=== PATIENT | male | born 1980 | race Two or more races ===

== ENCOUNTER → 2020-03-01 | Emergency (ER) | payer SELFPAY ==
[~2020-03-01] VITALS: Ht 15.2 cm; Wt 99.8 kg
[~2020-03-01] MED LIST: METF-370 PO; MORPHINE SULFATE 4 MG/ML SYR/VIAL IV ONE; ONDANSETRON HCL 4 MG/2 ML VIAL IV ONE; SODIUM CHLORIDE 0.9% 1,000 ML IV ONE
[2020-03-01 01:42] LABS: Basophils # (auto) 0.1 10 ^3/uL (0-0.2); Eosinophils # (auto) 0.2 10 ^3/uL (0-0.8); Eosinophils % (auto) 1.6 % (0.0-7.0); Hematocrit 50.2 % (41.0-53.0); Hemoglobin 16.6 g/dL (13.5-17.5); Lymphocytes # (auto) 1.9 10 ^3/uL (0.4-5.4); Lymphocytes % (auto) 13.6 % (10.0-50.0); Mean Corpuscular Hemoglobin 29.2 pg (28.0-32.0); Mean Corpuscular Volume 88.4 fL (80.0-100.0); Monocytes # (auto) 1.1 10 ^3/uL (0-1.3); Monocytes % (auto) 7.8 % (0.0-12.0); Neutrophils # (auto) 10.5 10 ^3/uL (1.6-8.6); Nucleated Red Blood Cells % 0.1 %; Platelet Count (auto) 406 10^3/uL (140-450); Red Blood Cells 5.68 10^6/uL (4.5-5.90); White Blood Cell 13.9 10^3/uL (4.4-10.8)
[2020-03-01 01:57] LABS: INR 1.02 (0.9-1.15); Partial Thromboplastin Time 28.3 sec (23.64-32.05)
[2020-03-01 02:01] LABS: Albumin 3.4 g/dL (3.4-5.0); Amylase 37 U/L (25-115); Anion Gap 7 (5-15); Blood Urea Nitrogen 12 mg/dL (7-18); Calcium 8.7 mg/dL (8.5-10.1); Carbon Dioxide 26 mmol/L (21-32); Chloride 104 mmol/L (98-107); Glucose 116 mg/dL (74-106); Lipase 106 U/L (73-393); Magnesium 2.3 mg/dL (1.6-2.6); Potassium 4.1 mmol/L (3.5-5.1); Sodium 137 mmol/L (136-145)
[2020-03-01 02:03] LABS: Alanine Aminotransferase 514 U/L (16-61); Aspartate Aminotransferase 318 U/L (15-37); BUN/Creatinine Ratio 12.2; GFR African American 110 mL/min; GFR Non-African American 91 mL/min
[2020-03-01 02:11] LABS: Alkaline Phosphatase 229 U/L (45-117); Bilirubin, Total 0.9 mg/dL (0.2-1.0)
[2020-03-01 04:58] VITALS: BP 146/92
== END | disposition home or self-care (01) ==
LOC: EDBD 00:45 → ER 00:50
DX: K80.20 Calculus of gallbladder without cholecystitis without obstruction (principal); R11.2 Nausea with vomiting, unspecified
CPT/HCPCS: 36415; 71045; 74176; 76705; 80053; 82150; 83605; 83690; 83735; 84484; 85025; 85610; 85730; 93005; 96361; 96374; 96375; 99285; J2270; J2405

== ENCOUNTER 2020-03-07 12:51 | Inpatient (IN) | payer SELFPAY ==
[~2020-03-07] VITALS: Ht 182.9 cm; Wt 87.7 kg
[2020-03-07] MEDS ORDERED: SODIUM CHLORIDE 0.9% 1,000 ML IVB ONE (12:57)
[2020-03-07] MEDS ORDERED: PANTOPRAZOLE 40 MG/10 ML VIAL INJ IV STA (12:57)
[2020-03-07] MEDS ORDERED: HYDROmorphone HCL 2 MG/ML VL IV ONE (13:00)
[2020-03-07] MEDS ORDERED: ONDANSETRON HCL 4 MG/2 ML VIAL IV ONE (13:00)
[2020-03-07 13:27] LABS: Basophils # (auto) 0 10 ^3/uL (0-0.2); Basophils % (auto) 0.3 % (0.0-2.0); Eosinophils # (auto) 0.2 10 ^3/uL (0-0.8); Eosinophils % (auto) 2.1 % (0.0-7.0); Hematocrit 47.3 % (41.0-53.0); Hemoglobin 15.2 g/dL (13.5-17.5); Lymphocytes # (auto) 1.1 10 ^3/uL (0.4-5.4); Mean Corpuscular Hemoglobin 28.7 pg (28.0-32.0); Mean Corpuscular Hgb Conc. 32.2 g/dL (32.0-36.0); Mean Corpuscular Volume 89.2 fL (80.0-100.0); Monocytes # (auto) 1.1 10 ^3/uL (0-1.3); Monocytes % (auto) 9.4 % (0.0-12.0); Neutrophils # (auto) 8.9 10 ^3/uL (1.6-8.6); Neutrophils % (auto) 78.2 % (37.0-80.0); Nucleated Red Blood Cells % 0.1 %; Platelet Count (auto) 338 10^3/uL (140-450); Red Cell Distribution Width 14.2 % (11.8-14.3); White Blood Cell 11.3 10^3/uL (4.4-10.8)
[2020-03-07 13:56] LABS: Albumin 3.3 g/dL (3.4-5.0); Calcium 8.6 mg/dL (8.5-10.1); Potassium 4.1 mmol/L (3.5-5.1)
[2020-03-07 14:00] LABS: BUN/Creatinine Ratio 14.9; Bilirubin, Total 0.9 mg/dL (0.2-1.0); Total Protein 7.3 g/dL (6.4-8.2)
[2020-03-07] MEDS ORDERED: cefTRIAXone 1GM/50ML D5W 50 ML IV ONE (14:15)
[2020-03-07] MEDS ORDERED: ONDANSETRON HCL 4 MG/2 ML VIAL IV PRN (16:00)
[2020-03-07] MEDS ORDERED: NITROGLYCERIN 0.4 MG SL TAB SL PRN (16:00)
[2020-03-07] MEDS ORDERED: ACETAMINOPHEN 500 MG TAB PO PRN (16:00)
[2020-03-07] MEDS ORDERED: MORPHINE SULF INJ 2 MG/ML SYRINGE 1ML IV PRN ×2 (16:00)
[2020-03-07] MEDS ORDERED: DEXTROSE (50%) 50ML SYRG IV PRN (16:15)
[2020-03-07] MEDS: SOD CHL 0.9%/ KCL 20MEQ 1,000 ML IV SCH (16:22)
[2020-03-07] MEDS: InsuLIN REG 1unit/0.01ml Soln (100units/ml) SC SCH ×2 (17:00→21:28)
[2020-03-07] MEDS: ACCU-CHEK COMFORT CURVE STRIP VI SCH ×2 (17:03→21:28)
--- NOTE | 2020-03-07 17:55 | NUR ---
[facility] admit from ER JEAN BRANDT admitted to [facility] after SBAR received. Patient oriented to Audra lind RN, unit, room, bed, and unit policies regarding patient care and visiting hours. Patient weighed by bed scale and encouraged to call if they need something. All questions and concerns addressed, patient verbalized understanding. Instructed patient on POC, fall precautions and to call for assistance as needed. Patient verbalized understanding. Fall precautions in place with call light within reach.
[2020-03-07 18:17] VITALS: BP 140/93
[2020-03-07] MEDS ORDERED: METF-370 PO (18:36)
--- NOTE | 2020-03-07 18:42 | NUR ---
RE: Diet Spoke with Maria Fernanda Shipley, RE: diet order. Quinten to review test results and place orders.
--- NOTE | 2020-03-07 18:43 | NUR ---
Closing note Patient resting in bed with even and unlabored respirations, no distress noted. Fall precautions in place with call light within reach.
--- NOTE | 2020-03-07 19:03 | NUR ---
Care endorsed to CEDRIC Brownlee.
--- NOTE | 2020-03-07 21:00 | NUR ---
Opening Shift Note Assumed care of patient, awake and alert. No S/S of distress/SOB or pain. Instructed on POC, patient medications, accu checks pending surgical consult with Dr Landeros and to call for assist PRN, will continue to monitor for changes Q1hr and PRN. patient verbalizes understanding no questions asked.
[2020-03-07] MEDS: metroNIDAZOLE 500MG/100ML 100 ML IV SCH (21:34)
[2020-03-07 22:00] VITALS: BP 155/96
[2020-03-08] MEDS: SOD CHL 0.9%/ KCL 20MEQ 1,000 ML IV SCH ×3 (02:59→18:45)
[2020-03-08 05:42] VITALS: BP 134/77
[2020-03-08] MEDS: metroNIDAZOLE 500MG/100ML 100 ML IV SCH ×3 (06:20→23:47)
[2020-03-08] MEDS: InsuLIN REG 1unit/0.01ml Soln (100units/ml) SC SCH ×4 (06:20→22:00)
[2020-03-08] MEDS: ACCU-CHEK COMFORT CURVE STRIP VI SCH ×4 (06:20→23:48)
[2020-03-08 06:38] LABS: Basophils # (auto) 0 10 ^3/uL (0-0.2); Basophils % (auto) 0.3 % (0.0-2.0); Eosinophils # (auto) 0.2 10 ^3/uL (0-0.8); Eosinophils % (auto) 2.3 % (0.0-7.0); Hematocrit 45.3 % (41.0-53.0); Hemoglobin 15.1 g/dL (13.5-17.5); Lymphocytes # (auto) 0.9 10 ^3/uL (0.4-5.4); Lymphocytes % (auto) 8.3 % (10.0-50.0); Mean Corpuscular Hemoglobin 29.5 pg (28.0-32.0); Mean Corpuscular Hgb Conc. 33.4 g/dL (32.0-36.0); Mean Corpuscular Volume 88.5 fL (80.0-100.0); Monocytes # (auto) 0.8 10 ^3/uL (0-1.3); Monocytes % (auto) 7.7 % (0.0-12.0); Neutrophils # (auto) 8.5 10 ^3/uL (1.6-8.6); Neutrophils % (auto) 81.4 % (37.0-80.0); Platelet Count (auto) 314 10^3/uL (140-450); Red Blood Cells 5.12 10^6/uL (4.5-5.90); Red Cell Distribution Width 13.7 % (11.8-14.3); White Blood Cell 10.5 10^3/uL (4.4-10.8)
[2020-03-08 06:46] LABS: Albumin 2.9 g/dL (3.4-5.0); Calcium 8.2 mg/dL (8.5-10.1); Potassium 4.1 mmol/L (3.5-5.1)
[2020-03-08 06:48] LABS: BUN/Creatinine Ratio 10.4
--- NOTE | 2020-03-08 06:54 | NUR ---
HEADACHE PATIENT C/O 10 HEADACHE REQUESTING PAIN MEDICAITON. ADMINISTERED TYLENOL 500MG PO PRESCRIBED PATIENT TOLERATED WELL WILL CONTINUE TO MONITOR PATIENT.
[2020-03-08 06:57] LABS: Bilirubin, Total 0.8 mg/dL (0.2-1.0); Total Protein 6.6 g/dL (6.4-8.2)
[2020-03-08 07:01] LABS: INR 1.18 (0.9-1.15); Partial Thromboplastin Time 28.5 sec (23.64-32.05)
--- NOTE | 2020-03-08 08:00 | NUR ---
MORNING NOTE ASSUMED CARE OF PATIENT. PT IS RESTING WITH EYES CLOSED. NO S/S OF DISTRESS. RESPIRATIONS ARE EQUAL AND NON LABORED. BED IN LOWEST POSITION WITH CALL LIGHT IN PLACE. Signed: 03/08/20 at 1250 by Pippa GAVIN <Co-Signature Required> Co-Signed: 03/08/20 at 1250 by Audra Tan RN
[2020-03-08 09:07] VITALS: BP 129/69
[2020-03-08] MEDS: cefTRIAXone 1GM/50ML D5W 50 ML IV SCH (10:35)
--- NOTE | 2020-03-08 10:40 | NUR ---
URINE SAMPLE URINE SAMPLE COLLECTED AND SENT TO LAB PER MD HI
[2020-03-08 11:01] LABS: Urine Bacteria NONE SEEN /hpf (None Seen); Urine Blood Negative /uL (Negative); Urine Specific Gravity 1.013 (1.001-1.035); Urine WBC 3 /hpf (0 - 3)
--- NOTE | 2020-03-08 11:35 | NUR ---
MD was at bedside - Dr. Rickie Youssef Order received and read back to verify.
[2020-03-08 14:32] VITALS: BP 111/71
[2020-03-08 16:53] VITALS: BP 128/79
--- NOTE | 2020-03-08 18:20 | NUR ---
RE: Consents Attempted to obtain consents per MD order. Dr. Landeros has not discussed the procedure per the patient. Consents not signed. Consents filled out and placed in chart.
--- NOTE | 2020-03-08 18:52 | NUR ---
CLOSING NOTE PT SITTING AT BEDSIDE EATING DINNER. VS STABLE. NO S/S OF DISTRESS. RESPIRATIONS NORMAL AND NONLABORED. IV IS INTACT. BED DOWN, CALL LIGHT IN PLACE. Signed: 03/08/20 at 1900 by Pippa GAVIN <Co-Signature Required> Co-Signed: 03/08/20 at 1900 by Audra Tan RN
--- NOTE | 2020-03-08 19:23 | NUR ---
Care endorsed to CEDRIC Arnold. patient resting in bed with even and unlabored respirations, no distress noted. Fall precautions in place with call light within reach.
--- NOTE | 2020-03-08 20:00 | NUR ---
Opening Shift Note Assumed care of patient. Awake, alert, and oriented x4. No S/S of distress/SOB or pain. Call light within reach, bed locked, in lowest position, side rails up x2. Instructed on POC and to call for assist PRN. Will continue to monitor for changes Q1hr and PRN.
[2020-03-08 22:00] VITALS: BP 116/71
[2020-03-09 05:57] VITALS: BP 121/83
[2020-03-09] MEDS: metroNIDAZOLE 500MG/100ML 100 ML IV SCH ×3 (06:39→22:55)
[2020-03-09] MEDS: ACCU-CHEK COMFORT CURVE STRIP VI SCH ×4 (06:39→22:57)
[2020-03-09] MEDS: InsuLIN REG 1unit/0.01ml Soln (100units/ml) SC SCH ×4 (06:39→22:00)
[2020-03-09 07:00] LABS: Albumin 3.2 g/dL (3.4-5.0); Calcium 8.7 mg/dL (8.5-10.1); Potassium 4.6 mmol/L (3.5-5.1)
[2020-03-09 07:04] LABS: BUN/Creatinine Ratio 13.1; Bilirubin, Total 0.5 mg/dL (0.2-1.0); Total Protein 7.3 g/dL (6.4-8.2)
[2020-03-09 08:00] VITALS: BP 124/89
[2020-03-09] MEDS: SOD CHL 0.9%/ KCL 20MEQ 1,000 ML IV SCH ×2 (09:02→18:46)
[2020-03-09] MEDS: cefTRIAXone 1GM/50ML D5W 50 ML IV SCH (09:02)
[2020-03-09 09:29] VITALS: BP 124/89
[2020-03-09] MEDS ORDERED: POVIDONE IODINE 10 % TOPICAL OINT 30GM TOP ONE (11:51)
[2020-03-09] MEDS ORDERED: MIDAZOLAM HCL 1MG/1ML-2 ML VIAL ONE (12:08)
[2020-03-09] MEDS ORDERED: fentaNYL CITRATE 100 MCG/2 ML VL ONE (12:08)
--- NOTE | 2020-03-09 12:08 | NUR ---
PATIENT IS OFF UNIT FOR PROCEDURE WITH DR. VILLEDA
[2020-03-09] MEDS ORDERED: MEPERIDINE HCL (25 MG/ML) 1ML VIAL ONE (12:09)
[2020-03-09] MEDS ORDERED: DexAMETHasone SOD PHOS 10MG/1ML VIAL INJ ONE (12:14)
[2020-03-09] MEDS ORDERED: PROPOFOL 10 MG/ML 20 ML IV ONE (12:22)
[2020-03-09] MEDS ORDERED: ONDANSETRON HCL 4 MG/2 ML VIAL IV PRN ×2 (13:00→13:30)
[2020-03-09 13:05] VITALS: BP 137/82
[2020-03-09] MEDS ORDERED: MIDAZOLAM HCL 1MG/1ML-2 ML VIAL IV PRN (13:30)
[2020-03-09] MEDS ORDERED: ACCU-CHEK COMFORT CURVE STRIP VI ONE (13:30)
[2020-03-09] MEDS ORDERED: LABETALOL HCL 5 MG/ML 4ML SYRINGE IV PRN (13:30)
[2020-03-09] MEDS ORDERED: ePHEDrine SULFATE 50 MG/ML AMP IV PRN (13:30)
[2020-03-09] MEDS ORDERED: MORPHINE SULFATE 4 MG/ML SYR/VIAL IV PRN (13:30)
[2020-03-09] MEDS ORDERED: KETOROLAC TROMETH 30 MG/ML 1ML VIAL IV ONE (13:30)
[2020-03-09] MEDS ORDERED: HYDROmorphone HCL 2 MG/ML VL IV PRN (13:30)
--- NOTE | 2020-03-09 13:36 | NUR ---
patient is currently off unit for procedure
--- NOTE | 2020-03-09 14:56 | NUR ---
assessment re: consult for obtaining medi-kailee Patient is a 40 year old male who is alert and oriented. Patients cognitive abilities are intact. Prior to admission patient lived home with family and functioned independently. Patient informed me he is able to care for his own ADLs. Per patient he will return home to his prior living arrangements post discharge and family will transport him home. Patient has no insurance. Patient has been assessed by Jimmy Carbone of [facility]. Patient may qualify for Medi-kailee if she brings back all her paperwork. I have provided patient with resources for [facility], Dr. Moreau, and [facility] urgent care for follow up visits. I have provided patient with a prescription card from community assistance program. Patient has no post discharge needs at this time. I informed patient he has a right to speak to a social work assistant regarding all care. I informed patient he has a right to participate in any and all discharge planning. Patient does not have a POA and advanced directive. I have offered patient information on POA and advanced directives. I informed the patient the advantages and benefits of having an Advanced Directive. Patient verbalized understanding and agreed to discharge plan. Addendum: 03/09/20 at 1458 by Renetta ZARATE Amended: Links added.
[2020-03-09 16:51] VITALS: BP 126/91
--- NOTE | 2020-03-09 20:00 | NUR ---
Opening Shift Note Assumed care of patient. Awake, alert and oriented x4. No S/S of distress/SOB or pain. Abdominal binder is in place. Instructed on POC and to call for assist PRN. Bed locked, in lowest position, call light within reach, side rails up x2. Will continue to monitor for changes Q1hr and PRN.
[2020-03-09] MEDS: HYDROmorphone HCL 2 MG/ML VL IV PRN (21:01)
[2020-03-09 22:00] VITALS: BP 128/90
[2020-03-09] MEDS: NYSTATIN TOPICAL CREAM 15GM TOP SCH (22:00)
[2020-03-10] MEDS: HYDROmorphone HCL 2 MG/ML VL IV PRN (00:28)
[2020-03-10 05:00] VITALS: BP 121/81
[2020-03-10] MEDS: SOD CHL 0.9%/ KCL 20MEQ 1,000 ML IV SCH ×2 (05:44→14:54)
[2020-03-10] MEDS: metroNIDAZOLE 500MG/100ML 100 ML IV SCH ×2 (06:27→14:54)
[2020-03-10 06:28] LABS: Potassium 4.5 mmol/L (3.5-5.1)
[2020-03-10] MEDS: ACCU-CHEK COMFORT CURVE STRIP VI SCH ×2 (06:28→12:08)
[2020-03-10] MEDS: InsuLIN REG 1unit/0.01ml Soln (100units/ml) SC SCH ×2 (06:29→12:08)
[2020-03-10 06:44] LABS: Albumin 2.8 g/dL (3.4-5.0); BUN/Creatinine Ratio 16.9; Calcium 8.4 mg/dL (8.5-10.1)
[2020-03-10 06:52] LABS: Bilirubin, Total 0.4 mg/dL (0.2-1.0); Total Protein 7.1 g/dL (6.4-8.2)
--- NOTE | 2020-03-10 08:00 | NUR ---
OPENING SHIFT NOTE: PATIENT RESTING IN BED, A/OX4. PATIENT UPDATED ON PLAN OF CARE, CONCERNS ADDRESSED. ABDOMINAL BINDER IN PLACE, DRESSINGS TO ANTERIOR ABDOMEN CDI. PATIENT REPORTS PASSING GAS, BOWEL SOUNDS HYPOACTIVE, EDUCATED PATIENT TO CALL THIS RN IF PASSING GAS OR HAVING TH URGE TO HAVE A BM. ENCOURAGED AMBULATION TODAY. PATIENT HAS EVEN AND UNLABORED RESPIRATIONS. PATIENT ASYMPTOMATIC. CALL LIGHT WITHIN REACH, FALL PRECAUTIONS IN PLACE. WILL CONTINUE TO MONITOR.
[2020-03-10 09:00] VITALS: BP 129/81
--- NOTE | 2020-03-10 09:17 | NUR ---
CALL FROM FAMILY, PASSWORD RECEIVED, UPDATED ON PLAN OF CARE.
[2020-03-10] MEDS: cefTRIAXone 1GM/50ML D5W 50 ML IV SCH (09:35)
[2020-03-10] MEDS: NYSTATIN TOPICAL CREAM 15GM TOP SCH (09:35)
[2020-03-10] MEDS ORDERED: PANTOPRAZOLE 40 MG/10 ML VIAL INJ IV SCH (10:00)
[2020-03-10 13:00] VITALS: BP 149/89
--- NOTE | 2020-03-10 13:00 | NUR ---
PATIENT UPDATE: LUNCH TOLERATED WELL. PATIENT ABLE TO AMBULATE DOWNSTAIRS TO SMOKE.
--- NOTE | 2020-03-10 15:32 | NUR ---
DISCHARGE: ALL EDUCATION MATERIALS GIVEN TO PATIENT, IV REMOVED, MANUAL PRESSURE APPLIED. 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 PATIENT AMBULATED DOWN TO PRIVATE AUTO WITH ALL BELONGINGS.
== END 2020-03-10 15:30 | disposition home or self-care (01) | DRG 419 ==
LOC: ER 12:51 → EDBD 12:51 → OVERFLOW 12:52 → CENTRAL 17:58
PROVIDERS: ADMIT Nurse Practitioner Acute Care; ATTEND Family Medicine
PROC: 0FT44ZZ Resection of Gallbladder, Percutaneous Endoscopic Approach (ICD-10-PCS; principal; 2020-03-09 12:12)
DX: K80.00 Calculus of gallbladder with acute cholecystitis without obstruction (principal); E11.9 Type 2 diabetes mellitus without complications; E66.9 Obesity, unspecified; F17.210 Nicotine dependence, cigarettes, uncomplicated; I10 Essential (primary) hypertension; Z79.84 Long term (current) use of oral hypoglycemic drugs; Z80.9 Family history of malignant neoplasm, unspecified; Z82.49 Family history of ischemic heart disease and other diseases of the circulatory system; Z83.3 Family history of diabetes mellitus; Z68.26 Body mass index [BMI] 26.0-26.9, adult; Z79.899 Other long term (current) drug therapy
CPT/HCPCS: 36415; 76705; 80053; 81001; 82962; 83036; 83690; 85025; 85610; 85730; 86850; 86900; 86901; C9113; G0378; J0696; J1100; J1815; J2250; J2405; J2704; J3490